=== PATIENT | female | born 1965 | race Caucasian/White ===

== ENCOUNTER → 2018-06-25 10:09 | Outpatient (CLI) | payer OTHER, SELFPAY ==
[2018-06-25 10:15] LABS: Bacteria Urine None Seen
[2018-06-25 11:51] LABS: Appearance Urine UA CLEAR; Bilirubin Urine UA NEGATIVE (NEGATIVE); Color Urine UA YELLOW; Glucose Urine UA NEGATIVE (Normal); Ketones Urine UA NEGATIVE (NEGATIVE); Leukocyte Esterase Urine UA TRACE (NEGATIVE); Nitrite Urine UA Negative (Negative); Occult Blood Urine UA 3+ (Negative); Protein Urine UA NEGATIVE (Negative); Specific Gravity Urine UA <=1.005 (1.000-1.035); Urobilinogen Urine UA 0.2 E.U./dL (0.2); pH Urine UA 5.5 (4.5-8.0)
[2018-06-25 12:19] LABS: Culture Indicated Urine Specimen Cultured; RBC Urine 1-5/HPF (0-5/HPF); WBC Urine 0-1/HPF (0-5/HPF)
== END ==
PROVIDERS: Visit Provider Obstetrics & Gynecology
DX: R30.0 Dysuria (principal)
CPT/HCPCS: 81001; 87086

== ENCOUNTER → 2019-05-17 14:51 | Outpatient (CLI) | payer OTHER, SELFPAY ==
--- NOTE | 2019-05-17 14:53 | DI.MG.S_ITS ---
BILATERAL DIGITAL SCREENING MAMMOGRAM 3D/2D WITH CAD: 05/17/2019 CLINICAL: Routine screening. Comparison is made to exams dated: 05/20/2010 mammogram and 04/04/2006 mammogram - [facility]. There are scattered fibroglandular elements in both breasts. Current study was also evaluated with a Computer Aided Detection (CAD) system. No significant masses, calcifications, or other findings are seen in either breast. There has been no significant interval change. IMPRESSION: NEGATIVE There is no mammographic evidence of malignancy. A 1 year screening mammogram is recommended. NOTE: For mammograms, a report in lay terms will be sent to the patient. Approximately 15% of breast malignancies will not be visualized mammographically. In the management of a palpable breast mass, a negative mammogram must not discourage biopsy of a clinically suspicious lesion. Electronically Signed By: Brennen carmona/abdon:05/18/2019 08:21:38 letter sent: Normal Exam ACR BI-RADS Category 1: Negative 3341F
== END ==
PROVIDERS: Family Provider Family Medicine; Visit Provider Obstetrics & Gynecology
DX: Z12.31 Encounter for screening mammogram for malignant neoplasm of breast (principal); Z13.820 Encounter for screening for osteoporosis; M81.0 Age-related osteoporosis without current pathological fracture; Z78.0 Asymptomatic menopausal state; Z82.62 Family history of osteoporosis
CPT/HCPCS: 77063; 77067; 77080

== ENCOUNTER 2019-07-22 13:05 | Day surgery (SDC) | payer OTHER, SELFPAY ==
[2019-07-22 13:21] VITALS: BP 104/67; PULSE 78; RESP 16; TEMP 36.2; O2SAT 100
[2019-07-22] MEDS: SODIUM CHLORIDE 0.9% 1,000 ML 200 ML IV (13:37)
--- NOTE | 2019-07-22 14:17 | PM.HP.1 ---
History of Present Illness History of Present Illness Date Patient Seen: 07/22/19 Time Patient Seen: 14:17 Chief complaint: [id number] SCREENING COLONOSCOPY Narrative: 52-year-old white female who is asymptomatic and has had prior colonoscopy at age 40 which was normal she has a family history of colon cancer with her father and I think grandfather both had colon cancer. This patient has no melena no hematochezia no change in her bowel habits Patient History Surgical History History of removal of skin mole (Resolved) History of third molar tooth extraction (Resolved) Family & Social History Social History: household members spouse Tobacco & Substance use: Smoking Status Never smoker Meds Home Medications and Allergies Home Medications Medication Instructions Recorded Confirmed Type estradiol 0.5 mg tablet 0.5 mg PO DAILY #30 tab 06/12/19 07/22/19 Rx progesterone micronized 100 mg 100 mg PO QAM #30 cap 06/12/19 07/22/19 Rx capsule zolpidem 10 mg tablet See Rx Instructions PO HS #30 tab 06/12/19 07/22/19 Rx Allergies Allergy/AdvReac Type Severity Reaction Status Date / Time No Known Drug Allergies Allergy Unverified 05/08/19 14:03 Review of Systems Review of Systems ROS Unobtainable: All systems reviewed & are unremarkable except as noted in HPI and below Exam Vital Signs (past 8 hours): - 07/22/19 13:21 Temperature 97.1 F L Pulse Rate 78 Respiratory Rate 16 Blood Pressure 104/67 Pulse Oximetry 100 Oxygen Delivery Method Room Air Narrative Exam Narrative: Patient is alert and oriented asymptomatic Lungs are clear with no rales or wheezes Heart regular rhythm no murmur Abdomen soft nontender no organomegaly no masses Rectal will be done at colonoscopy Assessment & Plan Assessment & Plan narrative: Asymptomatic patient with a family history of colon cancer here for screening colonoscopy. She has had a prior exam. No polyps were seen. Patient has no questions about the procedure.
[2019-07-22] MEDS: fentaNYL 250 MCG/5 ML INJ IV (14:43)
--- NOTE | 2019-07-22 14:44 | PM.OP.ENDO ---
Operative Date/Time/Diagnoses Date of procedure: 07/22/19 Time of procedure: 14:44 Pre-op diagnosis: Screening colonoscopy Post-op diagnosis: same Procedure & Clinicians Study performed: Total colonoscopy to the cecum Same procedure as scheduled: Yes Indications: Family history of colon cancer Surgeon: Ananda Tatum Procedure Notes SCOAP/Timeout: Done Procedure in detail: The patient was properly identified during surgical pause and and given a total of 5 mg of Versed and 250 micro g of fentanyl throughout the procedure and remained comfortable. The flexible fiberoptic colonoscope inserted transanally to the cecum. There are no tumors no polyps no ulcerations no diverticuli. Procedure was very well tolerated. Scope withdrawal time: 10 Sedation minutes: 20 Complications: none Post-procedure Recommendations: Colonscopy in 5 years Disposition: PACU
[2019-07-22] MEDS: MIDAZOLAM 5 MG/5 ML VIAL IV (14:45)
[2019-07-22 14:46] VITALS: BP 93/54; PULSE 74; RESP 17; TEMP 36.6; O2SAT 97
[2019-07-22 14:52] VITALS: BP 100/57; PULSE 73; RESP 9; O2SAT 97
[2019-07-22 14:56] VITALS: BP 105/55; PULSE 75; RESP 12; O2SAT 99
[2019-07-22 15:01] VITALS: BP 105/61; PULSE 67; RESP 11; O2SAT 98
[2019-07-22 15:13] VITALS: BP 101/66; PULSE 68; RESP 15; TEMP 36.4; O2SAT 100
== END 2019-07-22 15:27 | disposition home or self-care (01) ==
PROVIDERS: Family Provider Obstetrics & Gynecology; PCP Family Medicine; Visit Provider Surgery
PROC: 0DJD8ZZ Inspection of Lower Intestinal Tract, Via Natural or Artificial Opening Endoscopic (ICD-10-PCS; CPT 45378; principal; 2019-07-22 14:30)
DX: Z12.11 Encounter for screening for malignant neoplasm of colon (principal); Z80.0 Family history of malignant neoplasm of digestive organs
CPT/HCPCS: 45378; 99152; J2250; J3010

== ENCOUNTER → 2019-11-13 07:02 | Outpatient (CLI) | payer OTHER, SELFPAY ==
[2019-11-13 07:49] LABS: Add Manual Diff / Slide Review NO; Basophils Absolute Auto 100 /uL (0-100); Basophils Percent Auto 1.1 % (0-2); Eosinophils Absolute Auto 200 /uL (0-450); Eosinophils Percent Auto 2.4 % (2-4); Hemoglobin 14.6 g/dL (12.0-16.0); Lymphocytes Absolute Auto 2100 /uL (1100-4500); Lymphocytes Percent Auto 32.1 % (25-40); Mean Corpuscular HGB Conc 33.9 % (30-36); Mean Corpuscular Hemoglobin 32.4 PG (26-34); Mean Corpuscular Volume 95.4 fL (80-100); Monocytes Absolute Auto 600 /uL (0-900); Monocytes Percent Auto 9.4 % (3-14); Neutrophils Absolute Auto 3600 /uL (1500-7000); Platelet Count 260 X10^3/uL (150-400); Red Blood Cell Count 4.51 X10^6/uL (4.0-5.2); Red Cell Distribution Width 12.7 % (11.6-14.8); White Blood Cell Count 6.6 X10^3/uL (4.5-11.0)
[2019-11-13 08:23] LABS: Alanine Aminotransferase 23 IU/L (<35); Albumin 4.3 g/dL (3.5-5.0); Albumin Globulin Ratio 1.5 (1.0-2.8); Alkaline Phosphatase 50 U/L (38-126); Aspartate Aminotransferase 31 IU/L (14-36); BUN Creatinine Ratio 32.9 (6-22); Blood Urea Nitrogen 23 mg/dL (7-17); Calcium 9.7 mg/dL (8.4-10.2); Carbon Dioxide 26 mmol/L (22-32); Chloride 105 mmol/L (98-107); Cholesterol 194 mg/dL (140-199); Estimated Glomerular Filt Rate > 60.0 mL/min (>60); Globulin 2.9 g/dL (1.7-4.1); Glucose 78 mg/dL (70-100); HDL Cholesterol 65 mg/dL (40-60); HEMOLYSIS < 15 (0-50); LDL Cholesterol Calculated 118 mg/dL (<100); Potassium 5.1 mmol/L (3.4-5.1); Sodium 140 mmol/L (137-145); Total Protein 7.2 g/dL (6.3-8.2); Triglycerides 53 mg/dL (35-150)
== END ==
PROVIDERS: Family Provider Obstetrics & Gynecology; PCP Family Medicine; Referring Provider Naturopath; Visit Provider Naturopath
DX: Z00.00 Encounter for general adult medical examination without abnormal findings (principal)
CPT/HCPCS: 36415; 80053; 80061; 85025

== ENCOUNTER → 2020-05-26 16:15 | Outpatient (CLI) | payer OTHER, SELFPAY ==
--- NOTE | 2020-05-26 16:26 | DI.MG.S_ITS ---
Patient Name: GRACIELA QUINN date: 1965 Sex: F Attending Physician: Olayinka Indications: Date: 05/26/2020 16:30 At the request of: AWA ISSA Procedure: MM screening mammo BI BILATERAL DIGITAL SCREENING MAMMOGRAM 3D/2D WITH CAD: 05/26/2020 CLINICAL: Routine screening. Comparison is made to exams dated: 05/17/2019 mammogram, 05/20/2010 mammogram, and 04/04/2006 mammogram - [facility]. There are scattered fibroglandular elements in both breasts. Current study was also evaluated with a Computer Aided Detection (CAD) system. No significant masses, calcifications, or other findings are seen in either breast. There has been no significant interval change. IMPRESSION: NEGATIVE There is no mammographic evidence of malignancy. A 1 year screening mammogram is recommended. This exam was interpreted at Station ID: [id number]. NOTE: For mammograms, a report in lay terms will be sent to the patient. Approximately 15% of breast malignancies will not be visualized mammographically. In the management of a palpable breast mass, a negative mammogram must not discourage biopsy of a clinically suspicious lesion. Electronically Signed By: Shannan gallego/abdon:05/26/2020 16:38:51 letter sent: Normal Exam ACR BI-RADS Category 1: Negative 3341F
== END ==
PROVIDERS: Family Provider Obstetrics & Gynecology; PCP Family Medicine; Referring Provider Obstetrics & Gynecology; Visit Provider Obstetrics & Gynecology
DX: Z12.31 Encounter for screening mammogram for malignant neoplasm of breast (principal)
CPT/HCPCS: 77063; 77067

== ENCOUNTER → 2022-09-01 08:34 | Outpatient (CLI) | payer OTHER, SELFPAY ==
--- NOTE | 2022-09-01 08:35 | DI.MG.S_ITS ---
BILATERAL DIGITAL SCREENING MAMMOGRAM 3D/2D WITH CAD: 09/01/2022 CLINICAL: Routine screening. Comparison is made to exams dated: 05/26/2020 mammogram and 05/17/2019 mammogram - [facility]. There are scattered areas of fibroglandular density in both breasts (category b / 25%-50% glandular tissue). Current study was also evaluated with a Computer Aided Detection (CAD) system. No significant masses, calcifications, or other findings are seen in either breast. There has been no significant interval change. IMPRESSION: NEGATIVE There is no mammographic evidence of malignancy. A 1 year screening mammogram is recommended. Based on the Tyrer Cuzick model (a risk assessment model) the patient's lifetime risk is 6.6% and her 10 year risk is 2.1%. According to the ACR, ACS, and NCCN guidelines, an annual breast MRI exam along with mammogram is recommended if the patient's lifetime risk is 20% or greater. This exam was interpreted at Station ID: [id number]. NOTE: For mammograms, a report in lay terms will be sent to the patient. Approximately 15% of breast malignancies will not be visualized mammographically. In the management of a palpable breast mass, a negative mammogram must not discourage biopsy of a clinically suspicious lesion. Electronically Signed By: Ray connolly/abdon:09/01/2022 11:49:56 copy to: EMELI PARK letter sent: Normal Exam ACR BI-RADS Category 1: Negative 3341F
== END ==
PROVIDERS: Family Provider Obstetrics & Gynecology; PCP Naturopath; Referring Provider Obstetrics & Gynecology; Visit Provider Obstetrics & Gynecology
DX: Z12.31 Encounter for screening mammogram for malignant neoplasm of breast (principal)
CPT/HCPCS: 77063; 77067

== ENCOUNTER → 2023-01-05 11:50 | Outpatient (CLI) | payer OTHER, SELFPAY ==
--- NOTE | 2023-01-05 12:08 | DI.DEXA.S_ITS ---
Bone Density Report Name: GRACIELA QUINN Age: 57 Sex: Female Ethnicity: White Date of : 1965 Indication: postmenopausal osteoporosis; Referring Provider: AWA ISSA Study: Bone densitometry was performed. Exam Date: January 05, 2023 Accession number: [id number] Bone Density: Region BMD T-score Z-score Classification AP Spine(L1-L4) 0.685 -3.3 -2.1 Osteoporosis Femoral Neck (Left) 0.578 -2.4 -1.3 Osteopenia Total Hip (Left) 0.724 -1.8 -1.0 Osteopenia Femoral Neck (Right) 0.567 -2.5 -1.4 Osteoporosis Total Hip (Right) 0.685 -2.1 -1.3 Osteopenia Total Hip Mean 0.705 -2.0 -1.2 Osteopenia World Health Organization criteria for BMD impression classify patients as: Normal (T-score at or above -1.0), Osteopenia (T-score between -1.0 and -2.5), or Osteoporosis (T-score at or below -2.5). 10-year Fracture Risk: FRAX not reported because: Some T-score for Spine Total or Hip Total or Femoral Neck at or below -2.5 Previous Exams: -- Region Exam Age BMD T-score BMD Change BMD Change Date g/cm2 vs Baseline vs Previous -- AP Spine (L1-L4) 01/05/2023 57 0.685 -3.3 0.047 (7.4%)# 0.047 (7.4%)# 05/17/2019 53 0.637 -3.7 Total Hip(Left) 01/05/2023 57 0.724 -1.8 0.025 (3.6%)# 0.025 (3.6%)# 05/17/2019 53 0.699 -2.0 Total Hip(Right) 01/05/2023 57 0.685 -2.1 0.006 (0.9%)# 0.006 (0.9%)# 05/17/2019 53 0.679 -2.2 -- *Denotes significance at 95% confidence level, LSC for AP Spine = 0.022 g/cm2, LSC for Total Hip = 0.027 g/cm2 # Denotes dissimilar scan types or analysis methods Impression: The patient has osteoporosis, based on the Total Spine T-score. No significant bone loss was observed. Discussion: HIGH RISK OF FRACTURE. BONE DENSITY IS UNDESIRABLY LOW AT ONE OR MORE SKELETAL SITES, CONSISTENT WITH OSTEOPOROSIS. ALSO, BONE DENSITY IS LOWER THAN EXPECTED FOR AGE AND SEX AT ONE OR MORE SKELETAL SITES; RECOMMEND A DILIGENT SEARCH FOR SECONDARY CAUSES OF BONE LOSS. This patient's lowest T-score meets the World Health Organization's (WHO) criteria for osteoporosis at one or more sites (T-score -2.5 or below). In untreated patients, the risk of osteoporotic fracture increases approximately two-fold for each 1.0 SD decrease in T-score. Low bone density is not the only risk factor for fracture; also consider factors such as patient's age, frailty or poor health, risk of falling, risk of injury, previous osteoporotic fracture, family history of osteoporosis, cigarette smoking, low body weight, etc. Not everyone with low bone mineral density has osteoporosis; osteomalacia and other metabolic bone disorders should also be considered. Patients who have osteoporosis should be evaluated for specific diseases and conditions (secondary causes) that may cause or contribute to bone loss. The [place] [employer] Endocrinologists (AACE) and National Osteoporosis Foundation (NOF) recommend pharmacologic intervention for all postmenopausal women whose T-score is in this range. Also, this patient's bone mineral density is below the range considered normal for healthy age-, sex-, and race-matched controls at least one site (Z-score -2.0 or below). This warrants careful evaluation for diseases and conditions that may contribute to accelerated bone loss. The patient should follow a healthful lifestyle (good nutrition with adequate calcium and vitamin D, and appropriate weight-bearing exercise). Follow-Up: Consider a repeat BMD and Vertebral Fracture Assessment (VFA) exam in 2 years or sooner if medically necessary, to reassess this patient's status. Reported by: HANH MENDEZ M.D. on 01/05/2023 12:17:00 PM.
== END ==
PROVIDERS: Family Provider Obstetrics & Gynecology; PCP Naturopath; Referring Provider Obstetrics & Gynecology; Visit Provider Obstetrics & Gynecology
DX: Z13.820 Encounter for screening for osteoporosis (principal); M81.0 Age-related osteoporosis without current pathological fracture
CPT/HCPCS: 77080

== ENCOUNTER → 2023-02-01 10:43 | Outpatient (CLI) | payer OTHER, SELFPAY ==
[2023-02-01 12:33] LABS: Add Manual Diff / Slide Review NO; Basophils Absolute Auto 100 /uL (0-100); Basophils Percent Auto 0.8 % (0-2); Eosinophils Absolute Auto 0 /uL (0-450); Eosinophils Percent Auto 0.5 % (2-4); Hemoglobin 14.1 g/dL (12.0-16.0); Lymphocytes Absolute Auto 2600 /uL (1100-4500); Lymphocytes Percent Auto 31.6 % (25-40); Mean Corpuscular HGB Conc 34.3 % (30-36); Mean Corpuscular Hemoglobin 32.8 PG (26-34); Mean Corpuscular Volume 95.6 fL (80-100); Monocytes Absolute Auto 600 /uL (0-900); Neutrophils Absolute Auto 5000 /uL (1500-7000); Neutrophils Percent Auto 60.1 % (50-75); Platelet Count 293 X10^3/uL (150-400); Red Blood Cell Count 4.29 X10^6/uL (4.0-5.2); Red Cell Distribution Width 12.7 % (11.6-14.8); White Blood Cell Count 8.3 X10^3/uL (4.5-11.0)
[2023-02-01 13:08] LABS: Alanine Aminotransferase 22 IU/L (<35); Albumin 4.2 g/dL (3.5-5.0); Albumin Globulin Ratio 1.6 (1.0-2.8); Alkaline Phosphatase 47 U/L (38-126); Aspartate Aminotransferase 26 IU/L (14-36); BUN Creatinine Ratio 20.8 (6-22); Bilirubin Total 1.9 mg/dL (0.2-1.3); Blood Urea Nitrogen 15 mg/dL (7-17); Calcium 9.2 mg/dL (8.4-10.2); Carbon Dioxide 26 mmol/L (22-32); Chloride 103 mmol/L (98-107); Cholesterol 213 mg/dL (140-199); Estimated Glomerular Filt Rate > 60 mL/min (>60); Globulin 2.6 g/dL (1.7-4.1); Glucose 80 mg/dL (70-100); HDL Cholesterol 72 mg/dL (40-60); HEMOLYSIS < 15 (0-50); LDL Cholesterol Calculated 127 mg/dL (<100); Sodium 137 mmol/L (137-145); Total Protein 6.8 g/dL (6.3-8.2); Triglycerides 71 mg/dL (35-150)
[2023-02-01 13:18] LABS: Free T3, Triiodothyronine Free 3.93 pg/mL (2.77-5.27); Free T4, Direct Thyroxine 1.13 ng/dL (0.78-2.19)
[2023-02-01 13:31] LABS: Thyroid Stimulating Hormone 1.13 uIU/mL (0.47-4.68)
[2023-02-02 07:32] LABS: Thyroid Peroxidase Antibodies <9 IU/mL (0-34)
[2023-02-03 04:59] LABS: Lipoprotein (a) 193.1 nmol/L (<75.0)
== END ==
PROVIDERS: Family Provider Obstetrics & Gynecology; PCP Naturopath; Referring Provider Naturopath; Visit Provider Naturopath
DX: Z00.00 Encounter for general adult medical examination without abnormal findings (principal); R53.83 Other fatigue; E78.00 Pure hypercholesterolemia, unspecified
CPT/HCPCS: 36415; 80053; 80061; 83695; 84439; 84443; 84481; 85025; 86376

== ENCOUNTER → 2023-02-28 10:33 | Outpatient (CLI) | payer OTHER, SELFPAY ==
[2023-02-28 11:24] LABS: Bilirubin Total 1.4 mg/dL (0.2-1.3)
== END ==
PROVIDERS: Family Provider Obstetrics & Gynecology; PCP Naturopath; Referring Provider Naturopath; Visit Provider Naturopath
DX: R17 Unspecified jaundice (principal)
CPT/HCPCS: 36415; 82247; 82248

== ENCOUNTER → 2023-02-28 | Outpatient (CLI) | payer SELFPAY | PROVIDERS: Family Provider Obstetrics & Gynecology; PCP Naturopath; Referring Provider Naturopath; Visit Provider Naturopath | DX: Z13.828 Encounter for screening for other musculoskeletal disorder (principal) ==

== ENCOUNTER 2023-04-03 07:20 | Emergency (ER) | payer OTHER, SELFPAY ==
--- NOTE | 2023-04-03 07:37 | DI.CT.S_ITS ---
PROCEDURE: CT ANGIO HEAD AND NECK INDICATIONS: Disoriented TECHNIQUE: Pre-contrast 4.5 mm thick sections acquired from the foramen magnum to the vertex. After the administration of intravenous contrast, 1 mm thick sections acquired from the aortic arch through the [place] of [place]. Post-contrast 4.5 mm thick sections then re-acquired from the foramen magnum to the vertex. 3-dimensional umjsgyj-tfvuexjen-aqehpdxmpd (MIP) and/or volume rendering reformats were acquired of the central intracranial vasculature and neck separately. For radiation dose reduction, the following was used: automated exposure control, adjustment of mA and/or kV according to patient size. COMPARISON: None. FINDINGS: Image quality: Excellent. BRAIN: CSF spaces: Ventricles are normal in size and shape. Basal cisterns are patent. No extra-axial fluid collections. Incidental note made of a posterior fossa arachnoid cyst or feng cisterna magna. Brain: No midline shift. No intracranial bleeds or masses. Espino-white matter interface appears intact. Skull and face: Calvarium and facial bones appear intact, without suspicious lesions. Orbits appear normal. Sinuses: Sinuses and mastoids are clear. HEAD CT ANGIOGRAPHY: Anterior circulation: Intracranial internal carotid arteries are normal in size and flow. The flow within the paired anterior cerebral arteries is normal and symmetric. The flow within the middle cerebral arteries is normal and symmetric. The anterior communicating artery is seen. No aneurysms are seen. Posterior circulation: Visualized portions of the vertebral arteries demonstrate normal caliber, and join to form a normal appearing basilar artery. Flow within the posterior cerebral arteries is normal and symmetric. No aneurysms are seen. NECK CT ANGIOGRAPHY: Carotid system: The great vessels demonstrate a conventional anatomy as they arise from the aortic arch. The origins of the common carotid arteries appear patent. The common carotid arteries demonstrate normal caliber and courses. The bifurcation regions are both widely patent. The internal carotid arteries demonstrate normal calibers and courses. Posterior circulation: The origins of the vertebral arteries both appear widely patent. The more superior extracranial portions of both vertebral arteries also demonstrate normal courses and calibers. They join to form a normal appearing basilar artery. Soft tissues: Visualized neck soft tissues demonstrate no suspicious abnormalities. Bones: No suspicious bony lesions. Visualized cervical spine appears normally aligned. IMPRESSION: 1. No acute intracranial process. 2. Incidental note made of feng cisterna magna versus posterior fossa arachnoid cyst. 3. Unremarkable CTA head. No stenosis, aneurysm, occlusion, or focal filling defect. 4. Patent carotids. Any quantitative measurements of stenosis were performed using NASCET criteria. Dictated by: Kennedy Almodovar M.D. on 04/03/2023 at 8:25 Approved by: Kennedy Almodovar M.D. on 04/03/2023 at 8:35
--- NOTE | 2023-04-03 07:37 | DI.RAD.S_ITS ---
PROCEDURE: XR CHEST 1V INDICATIONS: chest pain TECHNIQUE: One view of the chest was acquired. COMPARISON: None. FINDINGS: Surgical changes and devices: None. Lungs and pleura: Lungs are clear. No pleural effusions or pneumothorax. Mediastinum: Mediastinal contours appear normal. Heart size is normal. Bones and chest wall: No suspicious bony lesions. Overlying soft tissues appear unremarkable. IMPRESSION: No evidence acute pulmonary process. Dictated by: Kennedy Almodovar M.D. on 04/03/2023 at 8:41 Approved by: Kennedy Almodovar M.D. on 04/03/2023 at 8:41
[2023-04-03 07:39] VITALS: BP 148/79; PULSE 82; RESP 16; TEMP 36.9; O2SAT 99; BMI 22.0
--- NOTE | 2023-04-03 07:39 | ED.AMS ---
HPI - Altered Mental Status General Chief Complaint: Neuro Symptoms/Deficit Stated Complaint: AMS Time Seen by Provider: 04/03/23 07:37 History of Present Illness HPI narrative: The patient 57-year-old female without past medical history presenting today with confusion and disorientation. She reports that she returned yesterday from a month long trip in your. She reports that she was in [place] visiting. This morning she woke up went on a walk run at some point got confused not sure what time. 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 Friend is here with her now states she has had a repetitive questioning. She is answering the same question multiple times. Patient denies numbness tingling weakness loss of vision chest pain palpitations shortness of breath abdominal pain nausea vomiting painful frequent urination fever any other symptoms. She does seem confused. Related Data Previous Rx's Medication Instructions Recorded estradiol 0.5 mg tablet See Rx Instructions .Route 01/04/23 .COMPLEX #90 tabs progesterone micronized 100 mg See Rx Instructions .Route 01/04/23 capsule .COMPLEX #90 caps zolpidem 10 mg tablet See Rx Instructions PO HS insomnia 02/07/23 #30 tabs Allergies Allergy/AdvReac Type Severity Reaction Status Date / Time No Known Drug Allergies Allergy Unverified 01/03/22 15:03 Review of Systems Review of Systems ROS Unobtainable: All systems reviewed & are unremarkable except as noted in HPI and below Patient History Surgical History History of removal of skin mole History of third molar tooth extraction Social History household members: spouse Smoking Status: Never smoker Smoking Status: Never smoker Exam Initial Vital Signs Initial Vital Signs: Vital Signs Temperature 98.4 F 04/03/23 07:39 Pulse Rate 82 04/03/23 07:39 Respiratory Rate 16 04/03/23 07:39 Blood Pressure 148/79 H 04/03/23 07:39 Pulse Oximetry 99 04/03/23 07:39 Oxygen Delivery Method Room Air 04/03/23 07:39 GENERAL: Alert pleasant 57-year-old female and in no acute distress. HEENT: Head atraumatic,EOMI, pupils reactive, face symmetric, moist mucous membranes CARDIOVASCULAR: Regular rate and rhythm without murmurs, rubs or gallops. RESPIRATORY: Breath sounds equal bilaterally, no wheezes rales or rhonchi. ABDOMEN: Soft, nontender. Normoactive bowel sounds all 4 quadrants. No guarding or rebound. EXTREMITIES: Normal range of motion, no clubbing or edema. Neurovascularly intact NEUROLOGICAL: Alert and oriented x2.Normal gait and speech. Cranial nerves II through XII grossly intact. Good eaubfn-mk-guce, good whbf-qi-rxyt, strength equal bilaterally, no dysarthria or aphasia, sensation in tact to soft touch bilaterally, no visual changes, no facial droop] SKIN: Warm, dry, no laceration, no petechiae, no rashes or lesions. Scores NIH Stroke Scale Level of Conciousness: Alert, keenly responsive Ask month/age: Answers one question correctly, intubated follow commands Open/close eyes, close hand: Performs both tasks correctly Best gaze horizontal: Normal Visual torres: No visual loss Facial palsy: Normal symetrical movement Left arm drift: No drift for full 10 sec Right arm drift: No drift for full 10 sec Left leg drift: No drift for full 5 sec Right leg drift: No drift for full 5 sec Limb ataxia: Absent Sensory on face/arms/legs: Normal, no sensory loss Best language: No aphasia, normal Dysarthria: Normal Extinction or inattention: No abnormality Total NIH Stroke scale score: 1 Course Orders Ordered: ED Orders 04/03/23 07:37 CT angio head and neck Stat XR chest 1V Stat 04/03/23 07:43 Complete Blood Count AUTO DIFF Stat Comprehensive Metabolic Panel Stat D Dimer Stat Lipase Stat Troponin & CK Cardiac Panel Stat 04/03/23 08:12 Urine Culture Stat Urine Microscopic Stat 04/03/23 08:32 EKG-12 Lead Stat 04/03/23 08:44 MR head/brain wo con Stat Vital Signs Vital signs: Vital Signs - 8 hr 04/03/23 07:39 04/03/23 08:39 04/03/23 08:39 Temperature 98.4 F Pulse Rate 82 70 74 Respiratory Rate 16 16 Blood Pressure 148/79 H 147/67 H Pulse Oximetry 99 98 100 Oxygen Delivery Method Room Air Room Air 04/03/23 09:43 04/03/23 09:43 Temperature Pulse Rate 71 Respiratory Rate Blood Pressure 131/83 Pulse Oximetry 97 Oxygen Delivery Method MDM - Altered Mental Status Lab Data 04/03/23 07:43 04/03/23 07:43 Labs: Lab Results 04/03/23 04/03/23 04/03/23 Range/Units 07:43 07:43 07:43 WBC 9.1 (4.5-11.0) X10^3/uL RBC 4.52 (4.0-5.2) X10^6/uL Hgb 14.8 (12.0-16.0) g/dL Hct 42.8 (36-46) % MCV 94.7 (80-100) fL MCH 32.8 (26-34) PG MCHC 34.6 (30-36) % RDW 12.4 (11.6-14.8) % Plt Count 285 (150-400) X10^3/uL Neut % (Auto) 66.5 (50-75) % Lymph % (Auto) 23.6 L (25-40) % Sharp % (Auto) 8.0 (3-14) % Eos % (Auto) 0.7 L (2-4) % Baso % (Auto) 1.2 (0-2) % Neut # (Auto) 6000 (9375-0553) /uL Lymph # (Auto) 2100 (9007-8300) /uL Sharp # (Auto) 700 (0-900) /uL Eos # (Auto) 100 (0-450) /uL Baso # (Auto) 100 (0-100) /uL D-Dimer 654 H (<500) ng/ml Sodium 137 (137-145) mmol/L Potassium 3.6 (3.4-5.1) mmol/L Chloride 103 (98-107) mmol/L Carbon Dioxide 27 (22-32) mmol/L BUN 13 (7-17) mg/dL Creatinine 0.69 (0.52-1.04) mg/dL Estimated GFR > 60 (>60) mL/min BUN/Creatinine Ratio 18.8 (6-22) Glucose 122 H (70-100) mg/dL Calcium 9.6 (8.4-10.2) mg/dL Total Bilirubin 3.0 H (0.2-1.3) mg/dL AST 28 (14-36) IU/L ALT 22 (<35) IU/L Alkaline Phosphatase 46 (38-126) U/L Total Creatine Kinase 39 (30-135) U/L Troponin I < 0.012 (0.01-0.034) ng/mL Total Protein 8.0 (6.3-8.2) g/dL Albumin 4.8 (3.5-5.0) g/dL Globulin 3.2 (1.7-4.1) g/dL Albumin/Globulin Ratio 1.5 (1.0-2.8) Lipase 62 (23-300) U/L Urine RBC (0-5/HPF) Urine WBC (0-5/HPF) Ur Squamous Epith Cells (0-5/HPF) Ur Transition Epith Cell (0-5/HPF) Amorphous Sediment Urine Bacteria (None) Ur Culture Indicated? 04/03/23 Range/Units 08:12 WBC (4.5-11.0) X10^3/uL RBC (4.0-5.2) X10^6/uL Hgb (12.0-16.0) g/dL Hct (36-46) % MCV (80-100) fL MCH (26-34) PG MCHC (30-36) % RDW (11.6-14.8) % Plt Count (150-400) X10^3/uL Neut % (Auto) (50-75) % Lymph % (Auto) (25-40) % Sharp % (Auto) (3-14) % Eos % (Auto) (2-4) % Baso % (Auto) (0-2) % Neut # (Auto) (8856-2418) /uL Lymph # (Auto) (2052-4101) /uL Sharp # (Auto) (0-900) /uL Eos # (Auto) (0-450) /uL Baso # (Auto) (0-100) /uL D-Dimer (<500) ng/ml Sodium (137-145) mmol/L Potassium (3.4-5.1) mmol/L Chloride (98-107) mmol/L Carbon Dioxide (22-32) mmol/L BUN (7-17) mg/dL Creatinine (0.52-1.04) mg/dL Estimated GFR (>60) mL/min BUN/Creatinine Ratio (6-22) Glucose (70-100) mg/dL Calcium (8.4-10.2) mg/dL Total Bilirubin (0.2-1.3) mg/dL AST (14-36) IU/L ALT (<35) IU/L Alkaline Phosphatase (38-126) U/L Total Creatine Kinase (30-135) U/L Troponin I (0.01-0.034) ng/mL Total Protein (6.3-8.2) g/dL Albumin (3.5-5.0) g/dL Globulin (1.7-4.1) g/dL Albumin/Globulin Ratio (1.0-2.8) Lipase (23-300) U/L Urine RBC None seen (0-5/HPF) Urine WBC 0-1/hpf (0-5/HPF) Ur Squamous Epith Cells 0-1 /hpf (0-5/HPF) Ur Transition Epith Cell 0-1/hpf (0-5/HPF) Amorphous Sediment 1+ Urine Bacteria Few (2-10) H (None) Ur Culture Indicated? Specimen cultured Point of Care Testing Glucose POC 88 Urine Dip Bedside Urine Glucose Negative Bedside Urine Bilirubin - Negative Bedside Urine Ketone - Negative Urine Specific Grant 1.010 Bedside Urine Occult Blood +/- Bedside Urine pH 6.0 Bedside Urine Protein - Negative Bedside Urine Urobilinogen - Negative Bedside Urine Nitrite - Negative Bedside Urine Leukocytes + 70 Esterase Imaging Data CTA - brain/neck: Radiologist's Impression: PROCEDURE:? CT ANGIO HEAD AND NECK ? INDICATIONS:? Disoriented ? TECHNIQUE:? Pre-contrast 4.5 mm thick sections acquired from the foramen magnum to the vertex.? After the administration of intravenous contrast, 1 mm thick sections acquired from the aortic arch through the [place] of [place].? Post-contrast 4.5 mm thick sections then re-acquired from the foramen magnum to the vertex.? 3-dimensional hadugrt-ayropgtxj-ubhqclslvf (MIP) and/or volume rendering reformats were acquired of the central intracranial vasculature and neck separately. For radiation dose reduction, the following was used:? automated exposure control, adjustment of mA and/or kV according to patient size.? ? COMPARISON:? None. ? FINDINGS:? Image quality:? Excellent.? ? BRAIN:? CSF spaces:? Ventricles are normal in size and shape.? Basal cisterns are patent.? No extra-axial fluid collections.? Incidental note made of a posterior fossa arachnoid cyst or feng cisterna magna. ? Brain:? No midline shift.? No intracranial bleeds or masses.? Espino-white matter interface appears intact.? ? Skull and face:? Calvarium and facial bones appear intact, without suspicious lesions.? Orbits appear normal.? ? Sinuses:? Sinuses and mastoids are clear.? ? HEAD CT ANGIOGRAPHY:? Anterior circulation:? Intracranial internal carotid arteries are normal in size and flow.? The flow within the paired anterior cerebral arteries is normal and symmetric.? The flow within the middle cerebral arteries is normal and symmetric.? The anterior communicating artery is seen.? No aneurysms are seen.? ? Posterior circulation:? Visualized portions of the vertebral arteries demonstrate normal caliber, and join to form a normal appearing basilar artery.? Flow within the posterior cerebral arteries is normal and symmetric.? No aneurysms are seen.? ? NECK CT ANGIOGRAPHY:? Carotid system:? The great vessels demonstrate a conventional anatomy as they arise from the aortic arch.? The origins of the common carotid arteries appear patent.? The common carotid arteries demonstrate normal caliber and courses.? The bifurcation regions are both widely patent.? The internal carotid arteries demonstrate normal calibers and courses.? ? Posterior circulation:? The origins of the vertebral arteries both appear widely patent.? The more superior extracranial portions of both vertebral arteries also demonstrate normal courses and calibers.? They join to form a normal appearing basilar artery.? ? Soft tissues:? Visualized neck soft tissues demonstrate no suspicious abnormalities.? ? Bones:? No suspicious bony lesions.? Visualized cervical spine appears normally aligned.? IMPRESSION:? ? 1. No acute intracranial process. ? 2. Incidental note made of feng cisterna magna versus posterior fossa arachnoid cyst. ? 3. Unremarkable CTA head.? No stenosis, aneurysm, occlusion, or focal filling defect. ? 4. Patent carotids. ? Any quantitative measurements of stenosis were performed using NASCET criteria.? ? ? Dictated by: Kennedy Almodovar M.D. on 04/03/2023 at 8:25 ? ? Chest x-ray: Radiologist's Impression: PROCEDURE:? XR CHEST 1V ? INDICATIONS:? chest pain ? TECHNIQUE:? One view of the chest was acquired.? ? COMPARISON:? None. ? FINDINGS:? ? Surgical changes and devices:? None.? ? Lungs and pleura:? Lungs are clear.? No pleural effusions or pneumothorax.? ? Mediastinum:? Mediastinal contours appear normal.? Heart size is normal.? ? Bones and chest wall:? No suspicious bony lesions.? Overlying soft tissues appear unremarkable.? ? IMPRESSION:? No evidence acute pulmonary process. ? ? ? Dictated by: Kennedy Almodovar M.D. on 04/03/2023 at 8:41? MR brain: Radiologist's Impression: PROCEDURE:? MR HEAD/BRAIN WO CON ? INDICATIONS:? Transient global amnesia ? TECHNIQUE:? Non-contrast axial T1 spin echo, axial T2 fast spin echo, sagittal and axial FLAIR, coronal T2 fast spin echo, axial gradient echo, axial diffusion and ADC through the brain.? ? COMPARISON:? None. ? FINDINGS:? Image quality:? Excellent.? ? CSF spaces:? Ventricles appear symmetric in size and shape.? Basal cisterns are patent.? No extra-axial fluid collections.? Incidental feng cisterna magna versus arachnoid cyst of the posterior fossa.? ? Brain:? No intracranial bleeds or mass effects.? There is cerebral volume loss for age.? There are periventricular and deep white matter chronic small vessel ischemic changes.? Brainstem appears normal.? Diffusion-weighted images show no acute ischemic insults.? No chronic ischemic insults.? Normal intravascular flow voids are present.? ? Skull and face:? Calvarial bone marrow is normal in signal.? Orbits are normal.? ? Sinuses:? Sinuses and mastoids are clear.? ? IMPRESSION:? ? 1. No acute intracranial process, normal appearing brain parenchyma. ? 2. Incidental feng cisterna magna versus posterior fossa arachnoid cyst. ? ? Dictated by: Kennedy Almodovar M.D. on 04/03/2023 at 9:41 ? ? ECG Data Interpretation: Normal sinus rhythm rate 72 KS interval 130 QRS [address] changes no T-wave inversions MDM Narrative Medical decision making narrative: Patient is a very healthy 57-year-old female presenting today with disorientation confusion. She is having repetitive questioning. Concern for transient global amnesia. Nonetheless stroke workup is initiated in the ED. NIH stroke scale is 1 only for disorientation but no other focal deficits. No indication for tPA last known well is unknown and does not have a high NIH stroke scale. CT angio is negative blood work is overall reassuring no evidence of infection. She does not have any signs or symptoms of seizure and does not seem postictal. MRI does not show any CVA. Mental status does seem to improve with at bedside. Personally I do not have a lot of the repetitive questioning but people at bedside reporting that she is still having some. Her mental status does seem to be clearing according to well. We discussed going home and resting versus observation. At this time they both feel comfortable going home with close monitoring. Discharge Plan Departure Patient Disposition: Home Clinical Impression: TGA (transient global amnesia) Instructions: DI for Transient Global Amnesia Activity Restrictions/Additional Instructions: *You have been diagnosed with transient global amnesia *What to do: At this time I suspect that your symptoms resolved within 24. Please go home and rest. I would avoid driving and doing any sort of strenuous activity. He may also need close follow-up with her PCP and possibly a Neurology evaluation. You were also found to have a cyst on your MRI which is unlikely related to your symptoms today and is benign *Continue to take medications as directed *Follow up with your primary care provider in 2-3 days or call [phone] *Return to ER if you should have increasing confusion weakness numbness tingling facial droop difficulty speaking or any new, worsening or concerning symptoms Prescriptions: No Action estradiol 0.5 mg tablet See Rx Instructions .ROUTE .COMPLEX Qty: 90 3RF Dose Instruction: TAKE ONE TABLET BY MOUTH ONE TIME DAILY. *SCHEUDLE APPOINTMENT FOR ADDITIONAL REFILLS* Rx Instructions: TAKE ONE TABLET BY MOUTH ONE TIME DAILY. progesterone micronized 100 mg capsule See Rx Instructions .ROUTE .COMPLEX Qty: 90 3RF Dose Instruction: TAKE ONE CAPSULE EVERY MORNING. *SCHEDULE APPOINTMENT FOR ADDITIONAL REFILLS* Rx Instructions: TAKE ONE CAPSULE EVERY MORNING. zolpidem 10 mg tablet See Rx Instructions PO HS Qty: 30 3RF Dose Instruction: 10 mg 1/2 to 1 tablet by mouth prn sleep PO HS; Rx Instructions: 10 mg 1/2 to 1 tablet by mouth prn sleep PO HS; Referrals: Jazz Styles ND [Primary Care Provider] - Stand Alone Forms: Patient Portal/API
[2023-04-03 07:49] LABS: Add Manual Diff / Slide Review NO; Basophils Absolute Auto 100 /uL (0-100); Basophils Percent Auto 1.2 % (0-2); Eosinophils Absolute Auto 100 /uL (0-450); Eosinophils Percent Auto 0.7 % (2-4); Hematocrit 42.8 % (36-46); Hemoglobin 14.8 g/dL (12.0-16.0); Lymphocytes Absolute Auto 2100 /uL (1100-4500); Lymphocytes Percent Auto 23.6 % (25-40); Mean Corpuscular HGB Conc 34.6 % (30-36); Mean Corpuscular Hemoglobin 32.8 PG (26-34); Mean Corpuscular Volume 94.7 fL (80-100); Monocytes Absolute Auto 700 /uL (0-900); Neutrophils Absolute Auto 6000 /uL (1500-7000); Neutrophils Percent Auto 66.5 % (50-75); Platelet Count 285 X10^3/uL (150-400); Red Blood Cell Count 4.52 X10^6/uL (4.0-5.2); Red Cell Distribution Width 12.4 % (11.6-14.8); White Blood Cell Count 9.1 X10^3/uL (4.5-11.0)
[2023-04-03 08:00] LABS: D Dimer 654 ng/ml (<500)
[2023-04-03 08:01] LABS: Alanine Aminotransferase 22 IU/L (<35); Albumin 4.8 g/dL (3.5-5.0); Albumin Globulin Ratio 1.5 (1.0-2.8); Alkaline Phosphatase 46 U/L (38-126); Aspartate Aminotransferase 28 IU/L (14-36); BUN Creatinine Ratio 18.8 (6-22); Blood Urea Nitrogen 13 mg/dL (7-17); Calcium 9.6 mg/dL (8.4-10.2); Carbon Dioxide 27 mmol/L (22-32); Chloride 103 mmol/L (98-107); Creatine Kinase 39 U/L (30-135); Estimated Glomerular Filt Rate > 60 mL/min (>60); Globulin 3.2 g/dL (1.7-4.1); Glucose 122 mg/dL (70-100); HEMOLYSIS 16 (0-50); Lipase 62 U/L (23-300); Potassium 3.6 mmol/L (3.4-5.1); Sodium 137 mmol/L (137-145)
[2023-04-03 08:12] LABS: Troponin I < 0.012 ng/mL (0.01-0.034)
[2023-04-03 08:34] LABS: Amorphous Sediment Urine 1+; Bacteria Urine Few (2-10); Culture Indicated Urine Specimen Cultured; RBC Urine None Seen (0-5/HPF); Squamous Epithelial Cell Urine 0-1 /HPF (0-5/HPF); Transitional Epi Cells Urine 0-1/HPF (0-5/HPF); WBC Urine 0-1/HPF (0-5/HPF)
[2023-04-03 08:39] VITALS: BP 147/67; PULSE 70; PULSE 74; RESP 16; O2SAT 100; O2SAT 98
--- NOTE | 2023-04-03 08:40 | PC.NURSE ---
Pt arrives with friend at bedside. AAOx3 ambulatory. reports that she just arrived home 2 days ago from [place] and I am disoriented. Friend reports that she has repetitive speech and cannot remember short term things like what they spoke about on the phone this morning. [facility] 1 for stating year is 2021. Pt was unable to verbalize how old she was correctly. No PMH. 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 Appears to be having a transient global amnesia. IV placed. Glucose 88. Pt taken to and from CT without issue. Resting on stretcher. NAD. On cell phone and awaiting to arrive.
--- NOTE | 2023-04-03 09:03 | DI.MRI.S_ITS ---
PROCEDURE: MR HEAD/BRAIN WO CON INDICATIONS: Transient global amnesia TECHNIQUE: Non-contrast axial T1 spin echo, axial T2 fast spin echo, sagittal and axial FLAIR, coronal T2 fast spin echo, axial gradient echo, axial diffusion and ADC through the brain. COMPARISON: None. FINDINGS: Image quality: Excellent. CSF spaces: Ventricles appear symmetric in size and shape. Basal cisterns are patent. No extra-axial fluid collections. Incidental feng cisterna magna versus arachnoid cyst of the posterior fossa. Brain: No intracranial bleeds or mass effects. There is cerebral volume loss for age. There are periventricular and deep white matter chronic small vessel ischemic changes. Brainstem appears normal. Diffusion-weighted images show no acute ischemic insults. No chronic ischemic insults. Normal intravascular flow voids are present. Skull and face: Calvarial bone marrow is normal in signal. Orbits are normal. Sinuses: Sinuses and mastoids are clear. IMPRESSION: 1. No acute intracranial process, normal appearing brain parenchyma. 2. Incidental feng cisterna magna versus posterior fossa arachnoid cyst. Dictated by: Kennedy Almodovar M.D. on 04/03/2023 at 9:41 Approved by: Kennedy Almodovar M.D. on 04/03/2023 at 9:43
[2023-04-03 09:43] VITALS: BP 131/83; PULSE 71; O2SAT 97
== END 2023-04-03 10:09 | disposition home or self-care (01) ==
PROVIDERS: Emergency Provider Emergency Medicine; Family Provider Obstetrics & Gynecology; PCP Naturopath
DX: G45.4 Transient global amnesia (principal); R07.9 Chest pain, unspecified; R29.701 NIHSS score 1
CPT/HCPCS: 36415; 70496; 70498; 70551; 71045; 80053; 81003; 81015; 82550; 82962; 83690; 84484; 85025; 85379; 87086; 93005; 99285; Q9967

== ENCOUNTER → 2023-08-31 15:11 | Outpatient (CLI) | payer OTHER, SELFPAY ==
--- NOTE | 2023-09-01 03:32 | DI.NM.S_ITS ---
DATE OF SERVICE: 08/31/2023 TEST: Exercise stress test. INDICATIONS: Family history of coronary artery disease, underlying hyperlipidemia. CARDIAC STRESS: Patient underwent exercise stress test under the supervision of an attending staff. She walked on Cezar protocol for 9 minutes and 30 seconds, achieved maximum heart rate of 158, which was 97% of target heart rate. Normal blood pressure response. Resting blood pressure 122/78 and peak blood pressure 168/80 mmHg. Achieved 10.1 METs of workload, SOFIE -32%. Baseline rhythm was sinus. During stress, no convincing ischemic changes seen. No significant arrhythmias. No anginal symptoms. CONCLUSION: Exercise stress test is negative for inducible ischemia. Good exercise tolerance. Normal hemodynamic response. No significant arrhythmias or anginal symptoms. Overall, low-risk exercise stress test. Myrna Reed - JESSIE/rupali/radha doc#: [id number]/job#: [id number] dd: 08/31/2023 17:12:00 dt: 09/01/2023 03:28:00 DICTATING /COPIES TO: Wilbert Mcgrath MD COPIES MNE: IRWIN;
== END ==
PROVIDERS: Family Provider Obstetrics & Gynecology; PCP Naturopath; Referring Provider Internal Medicine Cardiovascular Disease; Visit Provider Internal Medicine Cardiovascular Disease
DX: Z82.49 Family history of ischemic heart disease and other diseases of the circulatory system (principal); E78.5 Hyperlipidemia, unspecified
CPT/HCPCS: 93017

== ENCOUNTER → 2023-10-26 08:46 | Outpatient (CLI) | payer OTHER, SELFPAY ==
[2023-10-26 10:24] LABS: Cholesterol 201 mg/dL (140-199); Glucose 91 mg/dL (70-100); HDL Cholesterol 73 mg/dL (40-60); LDL Cholesterol Calculated 117 mg/dL (<100); Triglycerides 54 mg/dL (35-150)
[2023-10-28 20:02] LABS: Lipoprotein (a) 140.8 nmol/L (<75.0)
[2023-10-29 05:11] LABS: Insulin Level Total 7.6 uIU/mL (2.6-24.9)
== END ==
PROVIDERS: Family Provider Obstetrics & Gynecology; PCP Naturopath; Referring Provider Internal Medicine Cardiovascular Disease; Visit Provider Internal Medicine Cardiovascular Disease
DX: E78.5 Hyperlipidemia, unspecified (principal); E78.00 Pure hypercholesterolemia, unspecified; Z83.3 Family history of diabetes mellitus
CPT/HCPCS: 36415; 80061; 82947; 83036; 83525; 83695

== ENCOUNTER → 2024-02-06 16:00 | Outpatient (CLI) | payer OTHER, SELFPAY ==
--- NOTE | 2024-02-06 16:01 | DI.MG.S_ITS ---
BILATERAL DIGITAL SCREENING MAMMOGRAM 3D/2D WITH CAD: 02/06/2024 CLINICAL: Routine screening. Comparison is made to exams dated: 09/01/2022 mammogram, 05/26/2020 mammogram, and 05/17/2019 mammogram - [facility]. There are scattered areas of fibroglandular density in both breasts (category b / 25%-50% glandular tissue). Current study was also evaluated with a Computer Aided Detection (CAD) system. No significant masses, calcifications, or other findings are seen in either breast. There has been no significant interval change. IMPRESSION: NEGATIVE There is no mammographic evidence of malignancy. A 1 year screening mammogram is recommended. Based on the Tyrer Cuzick model (a risk assessment model) the patient's lifetime risk is 6.3% and her 10 year risk is 2.3%. According to the ACR, ACS, and NCCN guidelines, an annual breast MRI exam along with mammogram is recommended if the patient's lifetime risk is 20% or greater. This exam was interpreted at Station ID: [id number]. NOTE: For mammograms, a report in lay terms will be sent to the patient. Approximately 15% of breast malignancies will not be visualized mammographically. In the management of a palpable breast mass, a negative mammogram must not discourage biopsy of a clinically suspicious lesion. Electronically Signed By: Annalisa Grubbs M.D., Ph.D. jose juan/abdon:02/07/2024 15:02:10 copy to: Aaliyah Bhagat letter sent: Normal Exam ACR BI-RADS Category 1: Negative 3341F
== END ==
PROVIDERS: Family Provider Obstetrics & Gynecology; PCP Naturopath; Referring Provider Naturopath; Visit Provider Naturopath
DX: Z12.31 Encounter for screening mammogram for malignant neoplasm of breast (principal); R92.323 Mammographic fibroglandular density, bilateral breasts
CPT/HCPCS: 77063; 77067

== ENCOUNTER → 2024-06-13 09:55 | Outpatient (CLI) | payer SELFPAY | PROVIDERS: Family Provider Family Medicine; PCP Family Medicine; Referring Provider Family Medicine; Visit Provider Family Medicine | DX: Z13.828 Encounter for screening for other musculoskeletal disorder (principal) ==

== ENCOUNTER → 2025-01-28 12:43 | Outpatient (CLI) | payer OTHER, SELFPAY ==
--- NOTE | 2025-01-28 12:44 | DI.RAD.S_ITS ---
PROCEDURE: XR DEXA AXIAL SKELETON INDICATIONS: osteoporosis - last scan 01/05/2023 COMPARISON: [facility], , XR DEXA AXIAL SKELETON, 01/05/2023, 12:08. FINDINGS: Lumbar Spine: Bone mineral density 0.707 (previously 0.685) g/cm2, T score -3.1 (previously -3.3). Left Femoral Neck: Bone mineral density 0.571 (previously 0.578) g/cm2, T score -2.5 (previously -2.4). Left Hip: Bone mineral density 0.719 (previously 0.724) g/cm2, T score -1.8 (previously -1.8). Fracture Risk Calculation (when applicable): 10-year fracture risk of a major osteoporotic fracture 19 percent and of a hip fracture 2.0 percent. (T score greater or equal to -1.0 to: NORMAL) (T score from -1.1 to -2.4: OSTEOPENIA) (T score less than or equal to -2.5: OSTEOPOROSIS) IMPRESSION: Osteoporosis--- recommend repeat DEXA in 2-3 years for reassessment. Follow-up guidelines as follows: Osteoporosis: Consider a repeat DEXA and Vertebral Fracture Assessment (VFA) exam in 2 years or sooner if medically necessary, to reassess this patient's status. Osteopenia: Consider a repeat DEXA in 2-3 years to reassess this patient's status, or if there is a new clinical indication. Normal: Consider a repeat DEXA in 5 years or sooner, or if there is a new clinical indication. All treatment decisions require clinical judgment and consideration of individual patient factors, including patient preferences, comorbidities, previous drug use, risk factors not captured in the FRAX model (e.g., frailty, falls, vitamin D deficiency, increased bone turnover, interval significant decline in bone density ) and possible under- or over-estimation of fracture risk by FRAX. In addition, the NOF Guide recommends that FDA-approved medical therapies be considered in postmenopausal women and men age >= 50 years with a: * Hip or vertebral (clinical or morphometric) fracture * T-score of <=-2.5 at the spine or hip * Ten-year fracture probability by FRAX of >= 3% for hip fracture or >=20% for major osteoporotic fracture. Dictated by: Pablo Dennison M.D. on 01/28/2025 at 20:04 Approved by: Pablo Dennison M.D. on 01/28/2025 at 20:06
== END ==
LOC: RAD 12:43
PROVIDERS: Family Provider Family Medicine; PCP Family Medicine; Referring Provider Family Medicine; Visit Provider Family Medicine
DX: M81.0 Age-related osteoporosis without current pathological fracture (principal)
CPT/HCPCS: 77080

== ENCOUNTER 2025-03-13 07:36 | Day surgery (SDC) | payer OTHER, SELFPAY ==
--- NOTE | 2025-03-13 | PATH_ITS ---
[facility] Accession Number: [id number] No. of containers..01 Tissue . 01 Material submitted: . colon - SIGMOID POLYP . 01 Diagnosis: SIGMOID POLYP: Colonic mucosa with benign lymphoid aggregate. No neoplasm identified. [facility] 03/19/2025 1548 Local . 01 Electronically signed: . Tyler Witt MD, Pathologist NPI- [id number] . 01 Gross description: . SIGMOID POLYP: Received in formalin is 1 fragment(s) of joseph, soft tissue measuring 1.3 x 0.6 x 0.2 cm submitted entirely in 1 cassette(s) /[facility] 03/19/2025 1548 Local . 01 Pathologist provided ICD-10: K63.89 . 01 CPT . 325165 Specimen Comment: A courtesy copy of this report has been sent to [phone] Performed at: [address] [id number] MD Tyler Witt MD Phone: [phone]
[2025-03-13 08:07] VITALS: BP 104/62; PULSE 75; RESP 16; TEMP 36.4; O2SAT 100
[2025-03-13] MEDS: LACTATED RINGERS 1,000 ML 42 ML IV (08:09)
--- NOTE | 2025-03-13 08:28 | PM.HP.IH.1 ---
History of Present Illness History of Present Illness Date Patient Seen: 03/13/25 Time Patient Seen: 08:28 Chief complaint: Screening Colonoscopy Narrative: Myrna is a 59 year old woman who had a colonoscopy in 2019. No polyps or other lesions were identified. Her father was diagnosed with colon cancer in his 60s. [facility] Medical History (Updated 03/13/25 @ 08:29 by Fletcher Bland MD) Elevated cholesterol Onychomycosis Osteoporosis Surgical History History of removal of skin mole History of third molar tooth extraction Social History household members: spouse Smoking Status: Never smoker alcohol intake: current Meds Home Medications and Allergies Home Medications ?Medication ?Instructions ?Recorded ?Confirmed ?Type ciclopirox 8 % topical solution 1 applic topical BEDTIME 4 weeks 05/21/24 05/21/24 Rx #6.6 mL estradiol 0.5 mg tablet 0.5 mg PO DAILY #100 tabs 01/09/25 Rx progesterone micronized 100 mg 100 mg PO DAILY #90 caps 01/09/25 Rx capsule Allergies Allergy/AdvReac Type Severity Reaction Status Date / Time No Known Drug Allergies Allergy Verified 03/13/25 08:01 Exam Vital Signs (past 8 hours): - 03/13/25 08:07 Temperature 97.5 F L Pulse Rate 75 Respiratory Rate 16 Blood Pressure 104/62 Pulse Oximetry 100 Oxygen Delivery Method Room Air Oxygen Delivery Method Room Air Const General: healthy appearing Assessment & Plan Assessment and plan (1) Family history of colon cancer: Status: Acute Plan Colonoscopy for family history of colon cancer. We discussed what the options would be polyps were found and we agreed that dropping down to 10 year interval would the be appropriate. Time-Based Coding :: [TOTAL MINUTES] spent with patient and on the chart (including review of chart, obtaining history, exam, reviewing outside data, placing orders, documenting exam and treatment plan, and counseling patient) on [DATE]. [employer] Bus Person Document charge(s): No
[2025-03-13 09:58] VITALS: BP 109/62; PULSE 75; RESP 16; TEMP 36.8; O2SAT 100
--- NOTE | 2025-03-13 10:01 | PM.OP.COLON ---
Operative Date/Time/Diagnoses Date of procedure: 03/13/25 Time of procedure: 10:01 Pre-op diagnosis: Family history of colon cancer Post-op diagnosis: same Procedure & Clinicians Study performed: Colonoscopy Same procedure(s) as scheduled: Yes Surgeon: Fletcher Bland Procedure Notes Procedure in detail: Surgeon: Fletcher Bland MD Anesthesia: Mikie Tran D.O. Procedure: The patient was brought to the endoscopy suite, placed in left lateral decubitus position. The patient was connected to monitoring devices. A time-out was performed. Sedation was administered. Once the patient was adequately sedated, a digital rectal exam was performed and was normal. The scope was then inserted and advanced to a proximally the hepatic flexure. The patient long tortuous colon and the cecum could not reached despite abdominal pressure and repositioning. The scope was then slowly withdrawn over greater than 6 minutes. The mucosa was thoroughly inspected. There was a small putative polyp in the sigmoid colon removed with a cold snare. The scope was retroflexed in the rectum. No other abnormalities were found. The scope was straightened and removed. The patient was awakened and brought to recovery. Scope withdrawal time: 8 minutes Sedation time: 36 minutes EBL: 5 mL Findings: Incomplete colonoscopy, long tortuous colon, small polyp sigmoid colon Post-procedure Disposition: PACU
[2025-03-13 10:03] VITALS: BP 109/66; PULSE 69; RESP 13; O2SAT 100
[2025-03-13] MEDS: ONDANSETRON 4 MG/2 ML INJ IV (10:06)
[2025-03-13 10:08] VITALS: BP 110/58; PULSE 63; RESP 10; O2SAT 100
[2025-03-13 10:13] VITALS: BP 103/56; PULSE 61; RESP 11; O2SAT 100
== END 2025-03-13 10:42 | disposition home or self-care (01) ==
PROVIDERS: Family Provider Family Medicine; PCP Family Medicine; Referring Provider Surgery; Visit Provider Surgery
PROC: 0DJD8ZZ Inspection of Lower Intestinal Tract, Via Natural or Artificial Opening Endoscopic (ICD-10-PCS; CPT 45378; principal; 2025-03-13 08:45)
DX: Z12.11 Encounter for screening for malignant neoplasm of colon (principal); Z80.0 Family history of malignant neoplasm of digestive organs; K63.5 Polyp of colon; Z53.09 Procedure and treatment not carried out because of other contraindication
CPT/HCPCS: 45378; J2405; J2704

== ENCOUNTER → 2025-03-25 07:30 | Outpatient (CLI) | payer OTHER, SELFPAY ==
[2025-03-25 09:12] LABS: Cholesterol 227 mg/dL (140-199); HDL Cholesterol 78 mg/dL (40-60); Triglycerides 75 mg/dL (35-150)
== END ==
LOC: LAB 07:31
PROVIDERS: Family Provider Family Medicine; PCP Family Medicine; Referring Provider Family Medicine; Visit Provider Family Medicine
DX: E78.00 Pure hypercholesterolemia, unspecified (principal)
CPT/HCPCS: 36415; 80061; 82172

== ENCOUNTER → 2025-04-24 08:29 | Outpatient (CLI) | payer OTHER, SELFPAY ==
--- NOTE | 2025-04-24 08:30 | DI.MG.S_ITS ---
MM screening mammo BI: 04/24/2025. BI-RADS: 1 CLINICAL: 59-year old female for bilateral screening mammogram. Tyrer-Cuzick lifetime risk of 4.3%. No personal or first-degree family history of breast cancer. PRIOR EXAMS 02/06/2024, 09/01/2022, 05/26/2020, 05/17/2019. MAMMOGRAPHY TECHNIQUE: 2D and 3D (tomosynthesis) digital mammographic views obtained, with additional images as needed for full coverage. Current study was also evaluated with a Computer Aided Detection (CAD) system. DENSITY B. There are scattered areas of fibroglandular density. MAMMOGRAPHY FINDINGS Bilateral: No suspicious mass, asymmetry, microcalcification, or other abnormality seen. IMPRESSION: * No evidence of malignancy. RECOMMENDATIONS Bilateral * Annual screening mammography. OVERALL ASSESSMENT CATEGORY BI-RADS-1: Negative. [employer] recommends annual screening mammography beginning at age 40 for women with average risk of breast cancer. ELECTRONICALLY SIGNED: Emily Elmore M.D. on 04/24/2025 at 01:34:31 PM PT Interpreting Station ID: [id number]
== END ==
LOC: MAMMO 08:29
PROVIDERS: PCP Family Medicine; Referring Provider Family Medicine; Visit Provider Family Medicine
DX: Z12.31 Encounter for screening mammogram for malignant neoplasm of breast (principal)
CPT/HCPCS: 77063; 77067